=== PATIENT | female | born 1980 | race Caucasian/White ===

== ENCOUNTER → 2024-06-16 | Outpatient (CLI) | payer OTHER ==
[2024-06-16 12:19] VITALS: BP 128/77; PULSE 99; RESP 16
--- NOTE | 2024-06-16 16:48 | P.PAINPG ---
PQRS Measure Charge Sheet Comment: HISTORY OF PRESENT ILLNESS: A 44 yr old female as a referral from Otilia SCHMID presents today w severe and chronic LBP > 6 mo secondary to radiculopathy, spondylosis and facet arthropathy without myelopathy for evaluation. Pt states pain level is provoked at 6 /10 in intensity, constant, localized in the lumbar spine, predominantly axial, achy in character w occasional shooting pain towards the LEs. Pain is provoked by standing for periods > 20 min or over activity. Pain is alleviated by PT x 6 wks which ended in 2020, physician guided home exercises 4-5 times weekly since 2020, heat, ice, medications (Cymbalta, Lyrica, Tyl), repositioning and rest . Oswestry disability pain score at 21. PMH: OA, GERD, HTN, UI PSH: BL Erector Spinae, LESIs, Cervical RFAs, Appendectomy SH: Negative x3 FH: Non contributory All: See list Meds: See list REVIEW OF ORGAN SYSTEMS: CONSTITUTIONAL: No fevers or chills. No recent weight loss. NEUROLOGICAL: + numbness and tingling along the distal extremities. No seizure disorders or headaches. MUSCULOSKELETAL: + pain PSYCHIATRIC: Denies current depression or suicidal thoughts. Physical Examinations : Constitutional : Cooperative , not in acute distress . Neurologic : Cranial nerve II to XII intact. No focal neurological deficits. Psychiatric : alert & oriented x 3. Matching mood & appropriate affect. Judgment & insight intact. Musculoskeletal : Cervical Spine Motor strength in the deltoid and biceps: Normal right side. Normal Left side Motor strength biceps and the wrist extensors: Normal right side . Normal left side Motor strength in the triceps muscle: Normal right side. Normal left side Deep tendon reflexes: Normal at the biceps. Normal at Brachioradialis. Normal at triceps Vertebral body tenderness to deep palpation over Cervical facet loading test: positive bilaterally Spurling test: positive bilaterally Neck distraction test: positive bilaterally Ruby sign: positive bilaterally Lumbar spine Motor strength lower extremities ,thigh and legs 5/5 Right side , 5/5 Left side Deep tendon reflexes : Normal Knee Jerk. Normal Ankle Jerk Vertebral body tenderness over L5 Barroso Test positive Lumbar facet Loading Test: positive Right / positive Left Range of motion of the lumbar spine Flexion 30 degrees, extension 10 degrees Straight Leg Raise test: Left/ Right positive at degrees Dara test: positive right / positive left. Severe tenderness over the Sacroiliac joint on the Right / Left sides Gaenslen test: positive bilaterally Seated flexion test: positive bilaterally. Sacral spine : Severe tenderness over the Sacroiliac joint: right side / left side Range of motion: Flexion of the lumbar spine <60 degrees Range of motion: Extension of the lumbar spine <20 degrees Gaenslen's Test positive Dara test: positive right side / left side Thigh Thrust Test Sacral Thrust Test Imaging: MRI non contrast cervical spine from 06/11/24 reviewed MRI non contrast lumbar spine from 06/11/24 reviewed Assessment/ Plan : C2-C3, C3-C4, C5-C6, C6-C7 posterior disc bulges w C4-C5 mod stenosis; L5-S1 mild disc bulge w facet arthropathy Recommendation of BL Erector Spinae Block #1. Risks, benefits of procedure discussed and patient verbalized understanding. Admits to anti- coagulant use or medical history of diabetes. Protocol for discontinuation/ continuation of medications janel procedure discussed. Minimal anesthesia provided, if clinically indicated, consisting of Versed and Fentanyl. All questions answered. I have spent greater than 30 minutes on patient care today. Dr Gold was available by phone for the evaluation of this patient. The time was used to review the medical records including relevant urine studies and Prescription history (MAPs), review of the available imaging, evaluation and examination of the patient, coordination of care with the medical staff and if applicable referring physicians, as well as creation of the medical record Controlled Substance Measures - Controlled Substance Measures Is patient prescribed a controlled substance at discharge?: No
== END ==
LOC: PNWHC3 10:23
PROVIDERS: ATTEND Specialist
DX: M48.02 Spinal stenosis, cervical region (principal); M50.31 Other cervical disc degeneration, high cervical region; M50.321 Other cervical disc degeneration at C4-C5 level; M50.322 Other cervical disc degeneration at C5-C6 level; M50.323 Other cervical disc degeneration at C6-C7 level; M48.07 Spinal stenosis, lumbosacral region; M51.379 Other intervertebral disc degeneration, lumbosacral region without mention of lumbar back pain or lower extremity pain
CPT/HCPCS: 99211

== ENCOUNTER 2024-07-31 09:03 | Day surgery (SDC) | payer OTHER ==
[2024-07-28 14:31] VITALS: BMI 33.3
[2024-07-31 09:39] VITALS: RESP 16; TEMP 97
[2024-07-31] MEDS: SODIUM CHLORIDE 0.9% 250 ML IV ONE (09:45)
[2024-07-31 09:54] LABS: Glucose,Whole Blood 97 mg/dL (70-110)
[2024-07-31] MEDS ORDERED: MIDAZOLAM 2 MG/2 ML VIAL ONE (10:12)
[2024-07-31] MEDS ORDERED: ROPIVACAINE 5MG/ML 20ML VIAL ONE (10:12)
[2024-07-31] MEDS ORDERED: TRIAMCINOLONE ACETONIDE 40 MG/ML 1 ML VIAL ONE (10:12)
[2024-07-31] MEDS ORDERED: fentaNYL (PF) 50 MCG/ML 2 ML AMP ONE (10:12)
[2024-07-31] MEDS: SODIUM CHLORIDE 0.9% 100 ML IV ONE (10:35)
--- NOTE | 2024-07-31 10:36 | P.PCN ---
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 (Sedation started at 1012 ,end 10:27 ) Complications: None. Estimated blood loss: None Specimens removed: None Ultrasound guided image: saved to electronic medical records. Indications for Procedure: The patient has been suffering from chronic left upper quadrant abdominal pain secondary to hernia surgery with mesh. Inadequate pain control with pharmacologic regimen.An erector spinae plane nerve block was scheduled for the patient. Procedure and Findings: The patient was seen and examined in the holding area. The written informed consent was obtained after explaining the risks, benefits, alternatives of the procedure to the patient. The patient was brought to the procedure room and was placed in the prone position on the operating table. A pillow was placed under the upper chest. Standard anesthesia monitoring was done through out the procedure. Timeout was completed. The skin preparation was done with ChloraPrep 1 and draping was done in usual sterile fashion. Sterile technique was observed throughout the procedure. Using curvilinear ultrasound probe, place the transducer in a paramedian sagittal orientation, approximately 2cm away from the midline (spinous processes), and vizualize the transverse process of L2-3 levels identified. 1 mL of ropivacaine 0.5% was injected with a 25 gauge needle to achieve adequate local anesthesia of the skin and subcutaneous tissue.Trapezius and erector spinae muscles identified. A 21 gauge, 100mm echogenic needle was placed and gradually advanced up to L2 transverse process,(on the right side )after touch the bony contact retracted back to a few millimeters. After confirming negative aspiration for blood, body fluids, air, paresthesia. 30 mL of block solution injected slowly after negative aspiration every 5 mL of injection under direct visualization of the ultrasound. The block solution containing 15 mL of 0.5% ropivacaine preservative-free mixed with 15 mL of normal saline PF, and 40 mg of Kenalog. The needle was removed intact, the exact same procedure was done for the left side Disposition : The patient tolerated the procedure very well. The patient was transferred to the recovery room and remained stable until discharged home. The patient was given detailed discharge instructions for bleeding, infection, increased pain at the injection site, and was advised to seek immediate medical attention should significant side effects develop. The patient will be followed up with our [facility] within 3- 4 weeks for follow-up visit.
[2024-07-31 11:01] VITALS: BP 111/69; PULSE 95
== END 2024-07-31 11:15 | disposition home or self-care (01) ==
LOC: ORPAIN 09:03
PROVIDERS: ATTEND Specialist
DX: G58.8 Other specified mononeuropathies (principal); M47.816 Spondylosis without myelopathy or radiculopathy, lumbar region; R10.12 Left upper quadrant pain
CPT/HCPCS: 81025; 64999; J2250; J3301; J3010; J2795; 99152

== ENCOUNTER → 2024-08-20 | Outpatient (CLI) | payer OTHER ==
[2024-08-20 14:30] VITALS: BP 140/80; PULSE 105; RESP 16; TEMP 98.5
--- NOTE | 2024-08-20 15:47 | P.PAINPG ---
PQRS Measure Charge Sheet Comment: HISTORY OF PRESENT ILLNESS: A 44 yr old female presents today w severe and chronic LBP > 6 mo secondary to radiculopathy, spondylosis and facet arthropathy without myelopathy for evaluation s/p BL Erector Spinae Block #1. Pt states she experienced 60-70 % pain relief x 3 wks s/p procedure. Pt states pain level is provoked at 7-8 /10 in intensity, intermittent, localized in the lumbar spine, predominantly axial, achy in character w occasional shooting pain towards the LEs. Pain is provoked by standing for periods > 20 min or over activity. Pain is alleviated by PT x 6 wks which ended in 2020, physician guided home exercises 4-5 times weekly since 2020, heat, ice, medications, repositioning and rest . Interventional procedrues include BL Erector Spinae Block x1 Medications include Cymbalta, Lyrica, Tyl REVIEW OF ORGAN SYSTEMS: CONSTITUTIONAL: No fevers or chills. No recent weight loss. NEUROLOGICAL: + numbness and tingling along the distal extremities. No seizure disorders or headaches. MUSCULOSKELETAL: + pain PSYCHIATRIC: Denies current depression or suicidal thoughts. Physical Examinations : Constitutional : Cooperative , not in acute distress . Neurologic : Cranial nerve II to XII intact. No focal neurological deficits. Psychiatric : alert & oriented x 3. Matching mood & appropriate affect. Judgment & insight intact. Musculoskeletal : Cervical Spine Motor strength in the deltoid and biceps: Normal right side. Normal Left side Motor strength biceps and the wrist extensors: Normal right side . Normal left side Motor strength in the triceps muscle: Normal right side. Normal left side Deep tendon reflexes: Normal at the biceps. Normal at Brachioradialis. Normal at triceps Vertebral body tenderness to deep palpation over Cervical facet loading test: positive bilaterally Spurling test: positive bilaterally Neck distraction test: positive bilaterally Ruby sign: positive bilaterally Lumbar spine Motor strength lower extremities ,thigh and legs 5/5 Right side , 5/5 Left side Deep tendon reflexes : Normal Knee Jerk. Normal Ankle Jerk Vertebral body tenderness over L5 Barroso Test positive Lumbar facet Loading Test: positive Right / positive Left Range of motion of the lumbar spine Flexion 30 degrees, extension 10 degrees Straight Leg Raise test: Left/ Right positive at degrees Dara test: positive right / positive left. Severe tenderness over the Sacroiliac joint on the Right / Left sides Gaenslen test: positive bilaterally Seated flexion test: positive bilaterally. Sacral spine : Severe tenderness over the Sacroiliac joint: right side / left side Range of motion: Flexion of the lumbar spine <60 degrees Range of motion: Extension of the lumbar spine <20 degrees Gaenslen's Test positive Dara test: positive right side / left side Thigh Thrust Test Sacral Thrust Test Imaging: MRI non contrast cervical spine from 06/11/24 reviewed MRI non contrast lumbar spine from 06/11/24 reviewed Assessment/ Plan : C2-C3, C3-C4, C5-C6, C6-C7 posterior disc bulges w C4-C5 mod stenosis; L5-S1 mild disc bulge w facet arthropathy Recommendation of BL Erector Spinae Block #2. Risks, benefits of procedure discussed and patient verbalized understanding. Admits to anti- coagulant use or medical history of diabetes. Protocol for discontinuation/ continuation of medications janel procedure discussed. Minimal anesthesia provided, if clinically indicated, consisting of Versed and Fentanyl. All questions answered. I have spent greater than 30 minutes on patient care today. Dr Gold was available by phone for the evaluation of this patient. The time was used to review the medical records including relevant urine studies and Prescription history (MAPs), review of the available imaging, evaluation and examination of the patient, coordination of care with the medical staff and if applicable referring physicians, as well as creation of the medical record PQRS Narrative: Hx Alcohol Use (MH) No Home Medications: Ambulatory Orders Acetaminophen 500 mg PO Q6HR PRN 07/28/24 DULoxetine HCL [Cymbalta] 60 mg PO QAM 07/28/24 Famotidine [Pepcid] 20 mg PO HS 07/28/24 Omeprazole [PriLOSEC] 40 mg PO QAM 07/28/24 Ondansetron [Zofran] 4 mg PO Q8HR PRN 07/28/24 buPROPion HCL [buPROPion HCL XL] 300 mg PO QAM 07/28/24 lisinopriL [Zestril] 20 mg PO QAM 07/28/24 norgestimate-ethinyl estradioL [Sprintec 28 Day Tablet] 1 dose PO QAM 07/28/24 Controlled Substance Measures - Controlled Substance Measures Is patient prescribed a controlled substance at discharge?: No
== END ==
LOC: PNWHC3 13:27
PROVIDERS: ATTEND Specialist
DX: M50.20 Other cervical disc displacement, unspecified cervical region (principal); M48.02 Spinal stenosis, cervical region; M47.817 Spondylosis without myelopathy or radiculopathy, lumbosacral region; M51.27 Other intervertebral disc displacement, lumbosacral region
CPT/HCPCS: 99211